=== PATIENT | male | born 1990 | race Caucasian/White ===

== ENCOUNTER 2019-11-02 16:28 | Emergency (ER) | payer SELFPAY ==
[~2019-11-02] VITALS: Ht 177.8 cm; Wt 108.9 kg
[2019-11-02 17:03] VITALS: BP_SYST 120
--- NOTE | 2019-11-02 17:06 | NUR ---
PATIENT PRESENTS TO THE ER WITH HX OF JUMPING ON A TRAMPOLINE ONE HOUR AGO AND LANDING AT AN AWKWARD ANGLE WITH SUBSEQUENT TRAUMA TO RIGHT MEDIAL KNEE AREA; NO OTHER TRAUMA, NO OTHER REMARKABLE S/S; PATIENT TO ER #HW1 AT 1700
--- NOTE | 2019-11-02 17:22 | NUR ---
Patient AAOx4 c/o right knee pain after jumping on trampoline and landing in an awkward position. Patient reports pain is dull, 6/10. Patient cannot extend knee fully without flinching in pain. Patient denies any medical history. Mild swelling noted to right knee. No abrasions noted. Respirations even and unlabored. No signs or symptoms of acute distress noted.
--- NOTE | 2019-11-02 17:43 | NUR ---
ER Dr. Byrd at bedside examining patient.
[2019-11-02] MEDS ORDERED: traMADol HCL HCL 50 MG TABLET (ULTRAM) PO ONE (17:45)
--- NOTE | 2019-11-02 18:37 | NUR ---
Patient given written and verbal discharge instructions and verbalizes understanding. ER Dr. Byrd discussed with patient the results and treatment provided. Patient in stable condition. ID arm band removed. Rx of Naproxen and Tramadol given. Patient educated on pain management and to follow up with PMD. Pain Scale 0/10. Opportunity for questions provided and answered. Medication side effect fact sheet provided.
[2019-11-02 18:41] VITALS: BP_SYST 121
== END 2019-11-02 18:37 | disposition home or self-care (01) ==
LOC: SED 16:28
DX: S93.401A Sprain of unspecified ligament of right ankle, initial encounter (principal); W17.89XA Other fall from one level to another, initial encounter; Y93.44 Activity, trampolining; Y92.89 Other specified places as the place of occurrence of the external cause; Y99.8 Other external cause status
CPT/HCPCS: 73564; 99283